=== PATIENT | female | born 1960 | race African-American/Black ===

== ENCOUNTER 2018-01-07 14:19 | Emergency (ER) | payer BC ==
[~2018-01-07] VITALS: Ht 172.7 cm; Wt 100.7 kg
[2018-01-07 14:45] VITALS: BP 147/82
--- NOTE | 2018-01-07 15:21 | Emergency Room Report ---
History of Present Illness General Chief Complaint: Headache Source: Patient Present Illness HPI 57-year-old female presents to the emergency department complaining of 1 out of 10 in severity headache that she describes as tight and bandlike primarily on the left side of her head since last night. Patient reports that last night she had a trip and fall over the sheriffs door in the kitchen and hit her head on a cabinet. Patient reports he does not believe that she lost consciousness she reports she was very dazed afterwards and felt as though she was "high" she was able to hear and understand her friends around her however she was having difficulty communicating how she fell. Patient states that she felt a little off. After a while one of her friends took her outside for some fresh air and patient states that the cold air made her symptoms improved significantly. Patient reports that she went to sleep last night and woke up and still has headache she states that she has not had any slurred speech, nausea, vomiting. Patient denies taking blood thinning medications. Denies unilateral weakness in the hands or legs denies paresthesias. Dizziness, Changes in Vision, Sensation, paresthesias, or a sudden onset/thunderclap severe headache. She reports that she has some tenderness to the right side of her head where she actually hit the cabinet on. Patient denies bleeding or open wounds. Allergies: Coded Allergies: SULFA (SULFONAMIDE ANTIBIOTICS) (Unverified Allergy, Unknown, 01/07/18) COPIED FROM UNCODED SECTION Patient History Past Medical History: see triage record Past Surgical History: none Pertinent Family History: none Now: No Immunizations: UTD Reviewed Nursing Documentation: PMH: Agreed; PSxH: Agreed Nursing Documentation-PMH Hx Cardiac Problems: No - DISC SURGERY Hx Hypertension: Yes Review of Systems All Other Systems: negative except mentioned in HPI Physical Exam Vital Signs Date Time Temp Pulse Resp B/P (MAP) Pulse Ox O2 Delivery O2 Flow Rate FiO2 01/07/18 14:36 98.0 69 16 147/82 97 Room Air 98.1 Sp02 EP Interpretation: reviewed, normal General Appearance: no apparent distress, alert, GCS 15, non-toxic Head: normocephalic, atraumatic Eyes: bilateral eye normal inspection, bilateral eye PERRL ENT: hearing grossly normal, normal voice Neck: full range of motion Respiratory: lungs clear, normal breath sounds, speaking full sentences Cardiovascular #1: regular rate, rhythm Musculoskeletal: back normal, gait/station normal, normal range of motion, tender - mild ttp to the right parietal area, no obvious swelling. Neurologic: alert, oriented x3, responsive, motor strength/tone normal, sensory intact, normal gait, speech normal, other - no facial droop, equal press operator meat strength bilaterally, , grossly normal Psychiatric: judgement/insight normal Skin: normal color, no rash, warm/dry, well hydrated Medical Decision Making PA Attestation Dr. Mcmahan is my supervising Physician whom patient management has been discussed with. Diagnostic Impression: Primary Impression: Head injury, closed, with concussion Qualified Codes: S06.0X0A - Concussion without loss of consciousness, initial encounter Additional Impression: Concussion syndrome ER Course 57-year-old female presents to the emergency department complaining of 1 out of 10 in severity headache that she describes as tight and bandlike primarily on the left side of her head since last night. Patient reports that last night she had a trip and fall over the sheriffs door in the kitchen and hit her head on a cabinet. Patient reports he does not believe that she lost consciousness she reports she was very dazed afterwards and felt as though she was "high" she was able to hear and understand her friends around her however she was having difficulty communicating how she fell. Patient states that she felt a little off. After a while one of her friends took her outside for some fresh air and patient states that the cold air made her symptoms improved significantly. Patient reports that she went to sleep last night and woke up and still has headache she states that she has not had any slurred speech, nausea, vomiting. Patient denies taking blood thinning medications. Denies unilateral weakness in the hands or legs denies paresthesias. Dizziness, Changes in Vision, Sensation, paresthesias, or a sudden onset/thunderclap severe headache. She reports that she has some tenderness to the right side of her head where she actually hit the cabinet on. Patient denies bleeding or open wounds. Ddx considered but are not limited to Fracture, dislocation, contusion, concussion Sprain/Strain/Spasm, hematoma Vital signs: are WNL, pt. is afebrile H&PE are most consistent with contusion, no evidence of focal neurological deficit, no loss of consciousness. ORDERS: PE and HPI do not indicate CT at this time. --collaborative decision after d/w pt. risk vs. benefits. ED INTERVENTIONS: -Discussed with this patient that although her history sounds like a significant hit to the head that she is not admitting any concerning neurological symptoms on physical exam. I discussed with patient and risks and benefits of head CT and we came to a collaborative decision that the amount of radiation is not warranted at this time and that she will continue conservative treatment at home and observe Discussed red flag symptoms to keep an eye out for that would indicate prompt return to the ED. - Pt. verbalizes her understanding and agreement with proposed treatment plan. DISCHARGE: At this time pt. is stable for d/c to home. Will provide printed patient care instructions, and any necessary prescriptions. Care plan and follow up instructions have been discussed with the patient prior to discharge. Last Vital Signs Date Time Temp Pulse Resp B/P (MAP) Pulse Ox O2 Delivery O2 Flow Rate FiO2 01/07/18 14:36 98.0 69 16 147/82 97 Room Air 98.1 Disposition: HOME, SELF-CARE Condition: Stable Scripts Acetaminophen* (TYLENOL EXTRA STRENGTH*) 500 Mg Tablet 500 MG ORAL Q6H, #20 TAB 0 Refills Prov: Ashley Bryant 01/07/18 Patient Instructions: Concussion, Adult, Head Injury, Adult Additional Instructions: Take medications as directed. Avoid Blood thinning medications: IBU, Motrin, Advil, Aspirin etc. Follow up with a Primary Care Provider in 3-5 days, even if your symptoms have resolved. Return sooner to ED if new symptoms occur, or current symptoms become worse. - Please note that this Emergency Department Report was dictated using [employer] visual design engineer technology software, occasionally this can lead to erroneous entry secondary to interpretation by the dictation equipment. Ashley Bryant Jan 07, 2018 15:21
[2018-01-07] MEDS ORDERED: TYLENOL EXTRA500 MG ORAL (15:22)
[2018-01-07 15:27] VITALS: BP 147/82
== END 2018-01-07 15:28 | disposition home or self-care (01) ==
LOC: EEVIPCON 14:19 → EMR 15:11
DX: S06.0X0A Concussion without loss of consciousness, initial encounter (principal); W01.0XXA Fall on same level from slipping, tripping and stumbling without subsequent striking against object, initial encounter; Y92.000 Kitchen of unspecified non-institutional (private) residence as the place of occurrence of the external cause; I10 Essential (primary) hypertension; Z88.2 Allergy status to sulfonamides
CPT/HCPCS: 99283